=== PATIENT | male | born 1960 | race Caucasian/White ===

== ENCOUNTER 2019-04-08 11:20 | Outpatient (CLI) | payer BC ==
--- NOTE | 2019-04-08 12:21 | ULT ---
EXAM: Right lower extremity venous Doppler PROVIDED CLINICAL HISTORY: Pain FINDINGS: Grayscale and color Doppler sonography with spectral analysis was performed of the right common femor al, femoral, popliteal, posterior tibial, greater saphenous and profunda femoral veins. The evaluated venous structures demonstrate a normal sonographic appearance. IMPRESSION: No sonographic evidence for right lower extremity deep venous thrombosis.
== END 2019-04-08 11:21 | disposition home or self-care (01) ==
LOC: ULT 11:20
PROVIDERS: ATTEND Family Medicine
DX: M25.561 Pain in right knee (principal)

== ENCOUNTER 2019-05-16 09:11 | Outpatient (CLI) | payer BC ==
--- NOTE | 2019-05-16 09:44 | RAD ---
XR Sinuses Tom View Only HISTORY: MRI clearance. COMPARISON: None. FINDINGS: There is a radiopaque tiny metallic density in the right frontal bone.
--- NOTE | 2019-05-16 11:02 | MRI ---
MRI CERVICAL SPINE WITHOUT CONTRAST: INDICATION: Cervical radiculopathy. Neck pain. FINDINGS: Cervical vertebrae maintain height. Moderate degenerative changes are noted with osteophytes at all levels. 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 At C3-4, prominent posterior disk bulge and spondylosis effaces the anterior subarachnoid space. Rig ht foraminal stenosis due to facet and uncinate hypertrophy at this level. At C4-5, disk bulge and spondylosis efface the anterior subarachnoid space. Right foraminal stenosis due to facet and uncinate hypertrophy. At C5-6, mild disk bulge and spondylosis centrally effaces the anterior subarachnoid space. No signi ficant foraminal stenosis. At C6-7, there is asymmetric disk protrusion with osteophyte complex seen paracentrally on the right abutting the anterior thecal sac on the right and displacing the traversing right nerve root. Mild r ight foraminal encroachment is also noted. C7-T1: No significant abnormality. IMPRESSION: 1. Asymmetric disk protrusion with disk-osteophyte complex projecting paracentrally on the right C6- C7 impinging on the anterior thecal sac and displacing traversing and exiting nerve roots on the righ t at this level. 2. 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 POS: C
== END 2019-05-16 09:12 | disposition home or self-care (01) ==
LOC: BICMRI 09:11
PROVIDERS: ATTEND Family Medicine
DX: M47.22 Other spondylosis with radiculopathy, cervical region (principal); M48.02 Spinal stenosis, cervical region; M25.78 Osteophyte, vertebrae; M50.123 Cervical disc disorder at C6-C7 level with radiculopathy
CPT/HCPCS: 70210; 72141

== ENCOUNTER 2022-10-28 10:20 | Day surgery (SDC) | payer BC ==
[2022-10-24 15:47] VITALS: BMI 35.9
[2022-10-28] MEDS ORDERED: Bupivacaine 0.25% HCL 30 ML VIAL ONE (12:15)
[2022-10-28] MEDS ORDERED: EPINEPHrine 1 MG/ML AMP ONE (12:15)
[2022-10-28] MEDS ORDERED: Lidocaine 2% PF 5 ML VIAL ONE (12:15)
[2022-10-28] MEDS ORDERED: fentaNYL 50 mcg/mL 1 mL Vial ONE (12:18)
[2022-10-28] MEDS ORDERED: CEFAZOLIN 2 GM VIAL ONE (12:25)
[2022-10-28] MEDS ORDERED: Sodium Chloride 0.9% 100 ML ONE (12:25)
[2022-10-28] MEDS ORDERED: Ondansetron PF 4 MG/2 ML Vial ONE (12:35)
[2022-10-28] MEDS ORDERED: Lidocaine 1% PF 5 ML VIAL ONE (12:35)
[2022-10-28] MEDS ORDERED: PROPOFOL 200 MG/20 ML VIAL ONE (12:35)
[2022-10-28] MEDS ORDERED: fentaNYL PF 100 MCG/2 ML SYRINGE ONE (13:48)
== END 2022-10-28 15:25 | disposition home or self-care (01) ==
LOC: SDC 10:20
PROVIDERS: ATTEND Surgery
PROC: 0HB4XZZ Excision of Neck Skin, External Approach (ICD-10-PCS; principal; 2022-10-28)
DX: C44.42 Squamous cell carcinoma of skin of scalp and neck (principal); L57.8 Other skin changes due to chronic exposure to nonionizing radiation; I10 Essential (primary) hypertension; E11.9 Type 2 diabetes mellitus without complications; E78.5 Hyperlipidemia, unspecified; H91.93 Unspecified hearing loss, bilateral; J45.909 Unspecified asthma, uncomplicated; M06.9 Rheumatoid arthritis, unspecified; M19.90 Unspecified osteoarthritis, unspecified site; Z79.84 Long term (current) use of oral hypoglycemic drugs; Z79.899 Other long term (current) drug therapy
CPT/HCPCS: 88305; 88331; 88332; 93005; 93010; J0171; J2001; J2405; J2704; J3010; J3490; S0020